=== PATIENT | male | born 1990 | race Caucasian/White ===

== ENCOUNTER 2016-12-06 10:41 | Emergency (ER) | payer OTHER ==
[2016-12-06 11:03] VITALS: TEMP 98.1; BMI 31.5
[2016-12-06] MEDS ORDERED: cloNIDine HCL 0.1 MG TABLET PO ONE (11:39)
--- NOTE | 2016-12-06 11:39 | PDOC ---
History of Present Illness - General History Source: Care Provider Exam Limitations: Other - History of Present Illness Initial Comments: 12/06/16 12:24 The patient is a 26 year old male accompanied by health aide, with a significant past medical history of autism and bipolar disorder, who presents to the emergency department sent from [facility] for further evaluation of tachycardia. As per health aide, the patients vitals were taken as part of the protocol to administer medication. At the time the patients heart rate was 120 bpm. Health aide reports the patient was allowed to walk around for approximately an hour before measuring his heart rate again. During the second reading the aide reports the readings subjectively increased. As a result the patient was brought to the ED for further evaluation of his tachycardia. The patient is on Clonidine and was not given his medication prior to presentation in the ED.The patients history is limited due to clinical condition. Allergies: None reported. Past Surgical History: None reported. Social History: Non-smoker. Denies alcohol or drug use. <King Hogan - Last Filed: 12/06/16 12:23> <Ngozi Min - Last Filed: 12/06/16 16:34> - General Chief Complaint: Tachycardia Stated Complaint: ELEVATED HEART RATE Time Seen by Provider: 12/06/16 11:19 Past History <King Hogan - Last Filed: 12/06/16 12:23> - Past Medical History Seizures: Yes Other medical history: SEVERE MR, AUTISM,BIPOLAR - Psycho/Social/Smoking Cessation Hx Anxiety: No Suicidal Ideation: No Smoking Status: No Smoking History: Never smoked Hx Alcohol Use: No <Ngozi Min - Last Filed: 12/06/16 16:34> - Past Medical History Allergies/Adverse Reactions: Allergies Allergy/AdvReac Type Severity Reaction Status Date / Time No Known Allergies Allergy Verified 12/06/16 10:56 Home Medications: Ambulatory Orders Citalopram Hydrobromide [Celexa -] 20 mg PO DAILY 08/05/13 Divalproex [Depakote -] 500 mg PO TID 08/05/13 Polyethylene Glycol 3350 [Miralax 255 gm Btl -] 17 gm PO ASDIR 08/05/13 Benzoyl Peroxide 5% Gel - 1 applic TP BID 12/06/16 Benztropine Mesylate 0.5 mg PO BID 12/06/16 Cholecalciferol (Vitamin D3) [Vitamin D3] 2,000 unit PO DAILY 12/06/16 Clindamycin 1% Gel [Cleocin] 0 gm TP BID 12/06/16 Clonidine HCl 0.1 mg PO BID 12/06/16 Docusate Sodium 100 mg PO TID 12/06/16 Lubiprostone [Amitiza] 24 mcg PO BID 12/06/16 Lurasidone HCl [Latuda] 60 mg PO DAILY 12/06/16 Risperidone 3 mg PO AM 12/06/16 Review of Systems - Review of Systems Able to Perform ROS?: Yes Comments:: 12/06/16 12:24 GENERAL/CONSTITUTIONAL: No fever or chills. No weakness. HEAD, EYES, EARS, NOSE AND THROAT: No change in vision. No ear pain or discharge. No sore throat. CARDIOVASCULAR: +Tachycardia. No chest pain or shortness of breath. RESPIRATORY: No cough, wheezing, or hemoptysis. GASTROINTESTINAL: No nausea, vomiting, diarrhea or constipation. GENITOURINARY: No dysuria, frequency, or change in urination. MUSCULOSKELETAL: No joint or muscle swelling or pain. No neck or back pain. SKIN: No rash NEUROLOGIC: No headache, vertigo, loss of consciousness, or change in strength/ sensation. ENDOCRINE: No increased thirst. No abnormal weight change. HEMATOLOGIC/LYMPHATIC: No anemia, easy bleeding, or history of blood clots. ALLERGIC/IMMUNOLOGIC: No hives or skin allergy. <King Hogan - Last Filed: 12/06/16 12:23> *Physical Exam - Vital Signs Last Vital Signs Temp Pulse Resp BP Pulse Ox 98.1 F 116 H 19 125/84 98 12/06/16 10:56 12/06/16 10:56 12/06/16 10:56 12/06/16 10:56 12/06/16 10:56 - Physical Exam Comments: 12/06/16 12:25 <King Hogan - Last Filed: 12/06/16 12:23> - Vital Signs Last Vital Signs Temp Pulse Resp BP Pulse Ox 98.1 F 116 H 19 125/84 98 12/06/16 10:56 12/06/16 10:56 12/06/16 10:56 12/06/16 10:56 12/06/16 10:56 <Ngozi Min - Last Filed: 12/06/16 16:34> ED Treatment Course - Medications Given in the ED: ED Medications Discontinued Medications Generic Name Dose Route Start Last Admin Trade Name Anuja PRN Reason Stop Dose Admin Clonidine 0.1 mg 12/06/16 11:39 12/06/16 11:43 Catapres - PO 12/06/16 11:40 0.1 mg ONCE ONE Administration <King Hogan - Last Filed: 12/06/16 12:23> Medical Decision Making - Medical Decision Making 12/06/16 14:12 Pt observed in ED. Offers no complaints. Well-appearing. In order to obtain labs and/or EKG, would require sedation, as he becomes frightened and combative. In consideration of risks/benefits of sedation, will not sedate at this time. Of note, he did not receive his clonidine for 2 days (we gave it in ED with improvement in HR), and was fasting yesterday for dental procedure. He ate a tray of food in the ED today and took his clonidine. Hr previously 140s at his half-way, now low 110s. I suspect this is related to missing medication (with rebound effect) and dec PO intake. <Ngozi Min - Last Filed: 12/06/16 16:34> *DC/Admit/Observation/Transfer - Attestations Scribe Attestion: 12/06/16 12:24 Documentation prepared by King Hogan, acting as medical administrator for Ngozi Min MD. <King Hogan - Last Filed: 12/06/16 12:23> - Discharge Dispostion Admit: No <Ngozi Min - Last Filed: 12/06/16 16:34> Diagnosis at time of Disposition: Tachycardia - Discharge Dispostion Disposition: HOME Condition at time of disposition: Stable - Patient Instructions Printed Discharge Instructions: DI for Tachycardia
[2016-12-06] MEDS ORDERED: cloNIDine HCL 0.1 MG TABLET ONE (11:40)
[2016-12-06 14:09] VITALS: BP 140/85; PULSE 114
== END 2016-12-06 14:19 | disposition home or self-care (01) ==
LOC: JER 10:41
DX: R00.0 Tachycardia, unspecified (principal); F31.9 Bipolar disorder, unspecified; F72 Severe intellectual disabilities; F84.0 Autistic disorder
CPT/HCPCS: 99282-25

== ENCOUNTER 2017-06-28 19:42 | Emergency (ER) | payer OTHER ==
[2017-06-28 20:05] VITALS: BP 128/85; PULSE 94; TEMP 98.1; BMI 34.8
--- NOTE | 2017-06-28 21:09 | PDOC ---
History of Present Illness - General Stated Complaint: EVALUATION Time Seen by Provider: 06/28/17 20:45 History Source: Patient Exam Limitations: No Limitations - History of Present Illness Initial Comments: 06/28/17 21:14 Patient is a 26-year-old male from [place]. she of autism, bipolar disorder, mental retardation, mood disorder, presents emergency department for medical clearance to return to facility. Patient was at home visit and disappeared from home for approximately 20 minutes and went down to the [facility]. Patient with no physical injury, only here for clearance. Past Medical History: Denies. Allergies: No known allergies Medications: Family History: Non-contributory Social History: Denies smoking, alcohol use, or IVDU Vital signs on arrival are notable for pulse of 96. Review of Systems GENERAL/CONSTITUTIONAL: No fever or chills. No weakness. No weight change. HEAD, EYES, EARS, NOSE AND THROAT: No change in vision. No ear pain or discharge. No sore throat. CARDIOVASCULAR: No chest pain or shortness of breath. RESPIRATORY: No cough, wheezing, or hemoptysis. GASTROINTESTINAL: No nausea, vomiting, diarrhea or constipation. No rectal bleeding. GENITOURINARY: No dysuria, frequency, or change in urination. MUSCULOSKELETAL: No joint or muscle swelling or pain. No neck or back pain. SKIN AND BREASTS: No rash or easy bruising. NEUROLOGIC: No headache, vertigo, loss of consciousness, or loss of sensation. PSYCHIATRIC: No depression or anxiety. ENDOCRINE: No increased thirst. No abnormal weight change. HEMATOLOGIC/LYMPHATIC: No anemia, easy bleeding, or history of blood clots. ALLERGIC/IMMUNOLOGIC: No hives or skin allergy. No latex allergy. Physical Exam: GENERAL: The patient is awake, nonverbal ( normal patient baseline) , no visible distress. HEAD: Normal with no signs of trauma. EYES: Pupils equal, round and reactive to light, extraocular movements intact, sclera anicteric, conjunctiva clear. ENT: Ears normal, nares patent, oropharynx clear without exudates. Moist mucous membranes. No uvula deviation NECK: Normal range of motion, supple without lymphadenopathy, JVD, or masses. LUNGS: Breath sounds equal, clear to auscultation bilaterally. No wheezes, and no crackles. HEART: Regular rate and rhythm, normal S1 and S2 without murmur, rub or gallop. ABDOMEN: Soft, nontender, normoactive bowel sounds. No guarding, no rebound. No masses. No bruising or abrasions RECTAL : Guaiac negative, normal rectal tone. MUSCULOSKELETAL: Normal range of motion, no edema. No clubbing or cyanosis. No cords, erythema, or tenderness. No CVA Tenderness with fist. NEUROLOGICAL: Cranial nerves II through XII grossly intact. Normal speech, normal gait. PSYCH: Normal mood, normal affect. SKIN: Warm, Dry, normal turgor, no rashes or lesions noted. Past History - Past Medical History Allergies/Adverse Reactions: Allergies Allergy/AdvReac Type Severity Reaction Status Date / Time No Known Allergies Allergy Verified 06/28/17 20:02 Home Medications: Ambulatory Orders Citalopram Hydrobromide [Celexa -] 20 mg PO DAILY 08/05/13 Divalproex [Depakote -] 500 mg PO TID 08/05/13 Polyethylene Glycol 3350 [Miralax 255 gm Btl -] 17 gm PO ASDIR 08/05/13 Benzoyl Peroxide 5% Gel - 1 applic TP BID 12/06/16 Benztropine Mesylate 0.5 mg PO BID 12/06/16 Cholecalciferol (Vitamin D3) [Vitamin D3] 2,000 unit PO DAILY 12/06/16 Clindamycin 1% Gel [Cleocin] 0 gm TP BID 12/06/16 Clonidine HCl 0.1 mg PO BID 12/06/16 Docusate Sodium 100 mg PO TID 12/06/16 Lubiprostone [Amitiza] 24 mcg PO BID 12/06/16 Lurasidone HCl [Latuda] 60 mg PO DAILY 12/06/16 Risperidone 3 mg PO AM 12/06/16 Psychiatric Problems: Yes (Autism, bipolar, MR) Seizures: Yes - Suicide/Smoking/Psychosocial Hx Smoking Status: No Smoking History: Never smoked Have you smoked in the past 12 months: No Information on smoking cessation initiated: No Hx Alcohol Use: No Drug/Substance Use Hx: No Substance Use Type: None *Physical Exam - Vital Signs Last Vital Signs Temp Pulse Resp BP Pulse Ox 98.1 F 94 H 18 128/85 98 06/28/17 20:03 06/28/17 20:03 06/28/17 20:03 06/28/17 20:03 06/28/17 20:03 Medical Decision Making - Medical Decision Making 06/28/17 21:15 A/P: Patient here for evaluation and clearance to return back to facility had run from mothers home and went to a local [facility], patient with no physical injury it is protocol of facility for patient to be evaluated prior to returning. Patient with no physical injury, I feel it is reasonable at this time to discharge patient back to facility safely. *DC/Admit/Observation/Transfer Diagnosis at time of Disposition: Well adult exam - Discharge Dispostion Disposition: HOME Condition at time of disposition: Good Admit: No - Patient Instructions Additional Instructions: Recommend follow-up with primary care doctor as needed cleared to return back to facility
== END 2017-06-28 21:30 | disposition home or self-care (01) ==
LOC: JERFT 19:42
DX: Z02.2 Encounter for examination for admission to residential institution (principal); F84.0 Autistic disorder; F79 Unspecified intellectual disabilities; F31.9 Bipolar disorder, unspecified
CPT/HCPCS: 99281-25

== ENCOUNTER 2022-08-15 17:52 | Emergency (ER) | payer OTHER ==
[2022-08-15 17:59] VITALS: BP 118/77; PULSE 82; RESP 16; TEMP 98.2; BMI 30.4
[2022-08-15] MEDS ORDERED: CEPHALEXIN MONOHYDRATE 500 MG CAPSULE (UD) PO ONE (19:28)
[2022-08-15] MEDS ORDERED: CEPHALEXIN MONOHYDRATE 500 MG CAPSULE (UD) ONE (19:38)
== END 2022-08-15 19:45 | disposition home or self-care (01) ==
LOC: JER 17:52 → JERFT 17:52 → JER 19:45
DX: S01.112A Laceration without foreign body of left eyelid and periocular area, initial encounter (principal)
CPT/HCPCS: 99283-25

== ENCOUNTER 2023-11-14 12:00 | Emergency (ER) | payer OTHER ==
[2023-11-14 12:14] VITALS: BP 112/71; PULSE 70; RESP 18; TEMP 97.1; BMI 30.2
[2023-11-14] MEDS ORDERED: ACETAMINOPHEN 325 MG TABLET (FP) ONE (13:59)
[2023-11-14] MEDS: ACETAMINOPHEN 325 MG TABLET (FP) PO ONE (14:10)
== END 2023-11-14 14:20 | disposition home or self-care (01) ==
LOC: JER 12:00
DX: S02.2XXA Fracture of nasal bones, initial encounter for closed fracture (principal); S05.10XA Contusion of eyeball and orbital tissues, unspecified eye, initial encounter; R04.0 Epistaxis; R06.02 Shortness of breath; W01.198A Fall on same level from slipping, tripping and stumbling with subsequent striking against other object, initial encounter
CPT/HCPCS: 99283-25